=== PATIENT | female | born 1955 | race Two or more races ===

== ENCOUNTER 2022-03-25 13:07 | Outpatient (CLI) | payer OTHER | END 2022-03-25 13:12 | disposition home or self-care (01) | LOC: MAMO-SONO 13:07 | PROVIDERS: ATTEND General Practice | DX: Z12.31 Encounter for screening mammogram for malignant neoplasm of breast (principal); R92.0 Mammographic microcalcification found on diagnostic imaging of breast; N60.01 Solitary cyst of right breast; N60.02 Solitary cyst of left breast ==

== ENCOUNTER 2023-05-05 11:39 | Outpatient (CLI) | payer OTHER | END 2023-05-05 11:42 | disposition home or self-care (01) | LOC: SONOGRAMA 11:39 | PROVIDERS: ATTEND Pathology Anatomic Pathology & Clinical Pathology | DX: D44.0 Neoplasm of uncertain behavior of thyroid gland (principal); D34 Benign neoplasm of thyroid gland; E06.3 Autoimmune thyroiditis; E07.9 Disorder of thyroid, unspecified ==